=== PATIENT | female | born 1995 | race Caucasian/White ===

== ENCOUNTER 2016-06-18 23:30 | Outpatient (CLI) | payer MEDICAID ==
[2016-06-19 01:59] LABS: CHLORIDE,CL 108 mmol/L (98-110); SODIUM,NA 138 mmol/L (136-146)
== END 2016-06-19 03:35 | disposition home or self-care (01) ==
LOC: MW.OBCHECK 23:30 → MW.OB 23:31 → MW.OBCHECK 06-19 03:35
PROVIDERS: ATTEND Obstetrics & Gynecology
DX: O26.893 Other specified pregnancy related conditions, third trimester (principal); R10.9 Unspecified abdominal pain
CPT/HCPCS: 36415; 59025; 80053; 81001; 85025

== ENCOUNTER 2016-07-25 00:14 | Inpatient (IN) | payer MEDICAID ==
[2016-07-25] MEDS ORDERED: Butorphanol 1 MG/ML SDV IVPUSH PRN (00:26)
[2016-07-25] MEDS ORDERED: Sodium Chloride 0.9% 10 ML Syringe FLUSH PRN (00:26)
[2016-07-25] MEDS ORDERED: Carboprost Tromethamine 250 MCG/1 ML Amp IM PRN (00:26)
[2016-07-25] MEDS ORDERED: Misoprostol 200 MCG Tab PO PRN (00:26)
[2016-07-25] MEDS ORDERED: Sodium Chloride 0.9% 2.5 ML Syringe FLUSH PRN (00:26)
[2016-07-25] MEDS ORDERED: Methylergonovine 0.2 MG/1 ML Amp IM PRN (00:26)
[2016-07-25] MEDS ORDERED: Water For Irrigation,Sterile 1,000 ML Container IRR PRN (00:26)
[2016-07-25] MEDS ORDERED: Lidocaine 1% 50 ML MDV INJECT PRN (00:26)
[2016-07-25] MEDS ORDERED: Terbutaline 1 MG/ML SDV SUBCUT PRN (00:29)
[2016-07-25] MEDS ORDERED: Oxytocin/Lactated Ringers 30 UNIT/500 ML BAG IV ONE (00:29)
[2016-07-25] MEDS ORDERED: Lactated Ringers 1,000 ML IV SCH (00:30)
[2016-07-25] MEDS ORDERED: Oxytocin/Lactated Ringers 30 UNIT/500 ML BAG IV SCH (00:30)
[2016-07-25] MEDS ORDERED: Misoprostol 25 MCG (1/4 of 100 MCG) Tab VAG ONE (00:30)
[2016-07-25] MEDS ORDERED: Misoprostol 25 MCG (1/4 of 100 MCG) Tab VAG PRN (04:29)
[2016-07-25] MEDS ORDERED: Bisacodyl 10 MG Supp RECTAL PRN (14:43)
[2016-07-25] MEDS ORDERED: Witch Hazel Medicated Pads 40/Jar TOP PRN (14:43)
[2016-07-25] MEDS ORDERED: Acetaminophen 500 MG Tab PO PRN (14:43)
[2016-07-25] MEDS ORDERED: oxyCODONE 5 MG Tab PO PRN (14:43)
[2016-07-25] MEDS ORDERED: Docusate Sodium 100 MG Cap PO PRN (14:43)
[2016-07-25] MEDS ORDERED: Benzocaine/Menthol 20%-0.5% Spray 78 GM Cannister TOP PRN (14:43)
[2016-07-25] MEDS: Lanolin 100% Cream 7 GM Tube TOP PRN (16:27)
[2016-07-25] MEDS: Ibuprofen 800 MG Tab PO PRN (16:28)
--- NOTE | 2016-07-26 01:34 | OR ---
SURGEON: Dari Horner DATE OF PROCEDURE: 07/25/2016 BRIEF PREOPERATIVE HISTORY: This is a 21-year-old, G2, P1, who presented to Labor and Delivery at 39 weeks gestation for elective induction of labor for logistics as the patient's works in the oil field and wanted to be present for his son's delivery in his 's labor. The patient essentially had an uncomplicated except class 1 obesity. The patient was apprised of risk of induction of labor being possible need for for or maternal reasons. Knowing all of the above, the patient still desired to go forward with elective induction of labor. On arrival, the patient did have an NST that was significant for category 1 status. The patient's vital signs were stable. The patient was afebrile. The patient was having some irregular contractions. The patient was given vaginal misoprostol every 4 hours x2 doses. Third dose of misoprostol 25 mcg had to be held secondary to patient chaya every 2 minutes, though contractions were not uncomfortable. When patient was examined by me, the patient was found to be 3-4 cm dilated, 90% effaced, and -2 station. Of note, patient was GBS negative, so amniotomy was performed for clear fluid. The patient got significantly uncomfortable after rupture of membranes. The patient eventually progressed from 5-6 cm to completely dilated in about 3 hours after amniotomy was performed. The patient had no pain medications for labor. The patient immediately started maternal expulsive efforts. PREOPERATIVE DIAGNOSIS: 1. Intrauterine at 39 weeks. 2. GBS negative. 3. Elective induction of labor. PREOPERATIVE DIAGNOSIS: 1. Intrauterine at 39 weeks. 2. GBS negative. 3. Elective induction of labor. 4. Delivered status. 5. Small first-degree vaginal laceration. PROCEDURE PERFORMED: Spontaneous-assisted vaginal delivery. ANESTHESIA: None. ESTIMATED BLOOD LOSS: 100 mL. FINDINGS: Viable male infant in vertex presentation with score of 8 and 9 at 1 and 5 minutes respectively and a weight of 4270 g. Normal intact placenta with 3- vessel cord. Shoulder dystocia dislodged with Hubert and 180-degree rotation of the shoulders. Hemostatic midline first-degree vaginal laceration. SPECIMEN REMOVED: Placenta. CONDITION: Postoperatively, the patient and tolerated the procedure well. COMPLICATIONS: None known. DESCRIPTION OF PROCEDURE: This female under no anesthesia delivered a viable male in vertex presentation with score of 8 and 9 at 1 and 5 minutes respectively and weight of 4270 g. Delivery was via spontaneous-assisted vaginal delivery with in vertex presentation. Upon delivery of vertex, the neck was checked and with gentle downward traction, the anterior shoulder did not spontaneously delivered. Immediately, the maternal head of the bed was completely reclined and maternal thighs were flexed for Hubert and with 180- degree rotation of shoulders, the anterior shoulder was quickly dislodged and followed by body. The was bulb suctioned at delivery. Cord was doubly clamped and the infant was taken over to the baby warmer. Cord gases and cord blood were collected and sent for analysis. After delivery of infant, IV Pitocin was given in a bolus fashion as uterotonic to prevent excessive maternal blood loss and to help expel the placenta. With signs of placental separation, a fundal massage was completed along with traction on the umbilical cord and a normal intact placenta with 3-vessel cord was delivered. After delivery of and placenta, the vagina, perineum, and rectum were explored, the patient had a midline first-degree hemostatic vaginal laceration. The patient had a small labia minora laceration that was hemostatic. Afterwards, the lower uterine segment and vagina was cleared of all clots and debris. The patient was cleansed, pads were changed and the bed was returned to functioning status. The patient and tolerated the procedure well. Sponge, lap, needle, and instrument counts were correct. After delivery of infant and placenta, the vagina, perineum, and rectum were explored, the patient was cleansed, pads were changed and the patient's bed was returned to functioning status. The patient tolerated the procedure well. Sponge, lap, needle, and instrument counts were correct. NEWTYOL / MODL /[id number] ELOY
[2016-07-26] MEDS: Ibuprofen 800 MG Tab PO PRN ×2 (08:18→17:25)
[2016-07-26 09:20] VITALS: BP 136/81
--- NOTE | 2016-07-26 09:53 | PCM.PNPP ---
- General Info Date of Service: 07/26/16 Functional Status: Reports: pain controlled, tolerating diet, ambulating, urinating - Review of Systems General: Reports: No Symptoms HEENT: Reports: no symptoms Pulmonary: Reports: no symptoms Cardiovascular: Reports: No Symptoms Gastrointestinal: Reports: No symptoms Genitourinary: Reports: no symptoms Musculoskeletal: Reports: no symptoms Skin: Reports: no symptoms Neurological: Reports: No Symptoms Psychiatric: Reports: no symptoms - General Info Date of Service: 07/26/16 - Patient Data Vital Signs - most recent: Last Vital Signs Temp 36.7 C 07/26/16 08:00 Pulse 80 07/26/16 08:00 Resp 16 07/26/16 08:00 BP 136/81 07/26/16 08:00 Pulse Ox 97 07/26/16 08:00 Weight - most recent: 102.603 kg Lab Results - last 24 hrs: Laboratory Results - last 24 hr 07/25/16 07/26/16 Range/Units 15:29 04:12 Hgb 10.9 L (12.0-16.0) g/dL Hct 33.4 L (36.0-46.0) % Screen NEGATIVE RhIG Candidate? YES Rhogam Indicated YES, BABY RH POS H Med Orders - Current: Current Medications Acetaminophen (Tylenol Extra Strength) 500 mg PO Q4H PRN PRN Reason: Pain Benzocaine/Menthol (Dermoplast Pain Relief 20%-0.5% Cressey) 78 gm TOP ASDIRECTED PRN PRN Reason: Perineal Comfort Measure Last Admin: 07/25/16 16:28 Dose: 1 can Bisacodyl (Dulcolax) 10 mg RECTAL .ONCE PRN PRN Reason: Constipation Butorphanol Tartrate (Stadol) 1 mg IVPUSH Q1H PRN PRN Reason: Pain Carboprost Tromethamine (Hemabate Ds) 250 mcg IM ASDIRECTED PRN PRN Reason: Post Hemorrhage Docusate Sodium (Colace) 100 mg PO BID PRN PRN Reason: Constipation Emollient Ointment (Lansinoh Hpa) 0 gm TOP ASDIRECTED PRN PRN Reason: Sore Nipples Last Admin: 07/25/16 16:27 Dose: 1 tube Lactated Ringer's (Ringers, Lactated) 1,000 mls @ 150 mls/hr IV ASDIRECTED DOMO Last Infusion: 07/25/16 01:10 Dose: 150 mls/hr Oxytocin/Lactated Ringer's (Pitocin In Lr 30 Units/500 Ml) 30 unit in 500 mls @ 2 mls/hr IV TITRATE DOMO; 2 MUNITS/MIN PRN Reason: Protocol Ibuprofen (Motrin) 800 mg PO Q6H PRN PRN Reason: Pain Last Admin: 07/26/16 08:18 Dose: 800 mg Lidocaine HCl (Xylocaine 1%) 50 ml INJECT .ONCE PRN PRN Reason: Laceration repair Methylergonovine Maleate (Methergine) 0.2 mg IM ASDIRECTED PRN PRN Reason: Post Hemorrhage Misoprostol (Cytotec) 200 mcg PO .ONCE PRN PRN Reason: Post Hemorrhage Oxycodone HCl (Oxycodone) 5 mg PO Q2H PRN PRN Reason: Pain Sodium Chloride (Saline Flush) 10 ml FLUSH ASDIRECTED PRN PRN Reason: Keep Vein Open Sodium Chloride (Saline Flush) 2.5 ml FLUSH ASDIRECTED PRN PRN Reason: Keep Vein Open Sterile Water (Sterile Water For Irrigation) 1,000 ml IRR ASDIRECTED PRN PRN Reason: delivery Last Admin: 07/25/16 13:48 Dose: 1,000 ml Terbutaline Sulfate (Brethine) 0.25 mg SUBCUT ASDIRECTED PRN PRN Reason: Tacysystole Witch Cathleen (Tucks) 1 pad TOP ASDIRECTED PRN PRN Reason: comfort care Last Admin: 07/25/16 16:28 Dose: 1 tub Discontinued Medications Oxytocin/Lactated Ringer's (Pitocin In Lr 30 Units/500 Ml) 30 unit in 500 mls @ 500 mls/hr IV ONETIME ONE Stop: 07/25/16 01:28 Last Admin: 07/25/16 14:20 Dose: 500 mls/hr Misoprostol (Cytotec) 25 mcg VAG ONETIME ONE Stop: 07/25/16 00:31 Last Admin: 07/25/16 01:51 Dose: 25 mcg Misoprostol (Cytotec) 25 mcg VAG Q4H PRN PRN Reason: Cervical Ripening Stop: 07/26/16 08:30 Last Admin: 05/25/17 06:07 Dose: 25 mcg - Interaction Disposition, : [place] in Room with Family Interaction: Holding Infant Feeding: Breastfed ; Nursed Well Support Person: - Recovery Exam Fundal Tone: Firm Fundal Level: 1 Fingerbreadths Below Umbilicus Fundal Placement: Midline Lochia Amount: Small Lochia Color: Rubra/Red Perineum Description: Intact, Minimal Bruising/Swelling Episiotomy/Laceration: Approximated Bladder Status: Voiding Urinary Elimination: Voided - Exam General: alert, oriented Neck: supple Lungs: Clear to auscultation, Normal respiratory effort Cardiovascular: Regular Rate, Regular Rhythm Abdomen: bowel sounds present, soft Extremities: no calf tenderness Skin: warm, dry, intact Neurological: no new focal deficit Psy/Mental Status: alert, normal affect, normal mood - Problem List & Annotations (1) Vaginal delivery SNOMED Code(s): 447738091 Code(s): O80 - ENCOUNTER FOR FULL-TERM UNCOMPLICATED DELIVERY Status: Acute Current Visit: Yes - Problem List Review Problem List Initiated/Reviewed/Updated: Yes - My Orders Last 24 Hours: My Active Orders 07/25/16 14:43 May Shower [RC] ASDIRECTED Vital Signs [RC] PER UNIT ROUTINE Acetaminophen [Tylenol Extra Strength] 500 mg PO Q4H PRN Benzocaine/Menthol [Dermoplast Pain Relief 20%-0.5% Cressey] 78 gm TOP ASDIRECTED PRN Bisacodyl [Dulcolax] 10 mg RECTAL .ONCE PRN Docusate Sodium [Colace] 100 mg PO BID PRN Ibuprofen [Motrin] 800 mg PO Q6H PRN Lanolin [Lansinoh HPA] See Dose Instructions TOP ASDIRECTED PRN Witch Cathleen [Tucks] 1 pad TOP ASDIRECTED PRN oxyCODONE 5 mg PO Q2H PRN Assess Lochia [WOMSER] Per Unit Routine Assess Uterine Involution [WOMSER] Per Unit Routine Breast Pump [WOMSER] Per Unit Routine Peripheral IV Discontinue [OM.PC] Routine 07/25/16 14:44 Ice Therapy [OM.PC] Per Unit Routine Perineal Care [OM.PC] Per Unit Routine Sitz Bath [OM.PC] Per Unit Routine 07/25/16 15:29 SCREEN [BBK] Routine RH IMMUNE GLOBULIN [BBK] Routine RHIG WORKUP, [BBK] Routine 07/25/16 Lunch Regular Diet [DIET] - Assessment Assessment:: PPD#1 S/p SAVD Doing well overall Desires discharge home today - Plan Plan:: Discharge home today with follow up in 6wks Pelvic rest for 6wks Bleeding precautions given Infection precautions given Thrombotic precautions given blues/depression precautions given
[2016-07-26] MEDS: Lanolin 100% Cream 7 GM Tube TOP PRN (14:14)
== END 2016-07-26 17:35 | disposition home or self-care (01) | DRG 775 ==
LOC: MW.OBCHECK 00:14 → MW.OB 00:20 → OBSVTOIN 14:18 → MW.OB 14:18 → MW.OBCHECK 14:29
PROVIDERS: ADMIT Obstetrics & Gynecology; ATTEND Obstetrics & Gynecology
PROC: 10E0XZZ Delivery of Products of Conception, External Approach (ICD-10-PCS; principal; 2016-07-25)
PROC: 0HQ9XZZ Repair Perineum Skin, External Approach (ICD-10-PCS; 2016-07-25)
PROC: 10907ZC Drainage of Amniotic Fluid, Therapeutic from Products of Conception, Via Natural or Artificial Opening (ICD-10-PCS; 2016-07-25)
PROC: 3E0P7GC Introduction of Other Therapeutic Substance into Female Reproductive, Via Natural or Artificial Opening (ICD-10-PCS; 2016-07-25)
DX: O70.0 First degree perineal laceration during delivery (principal); O66.0 Obstructed labor due to shoulder dystocia; Z3A.39 39 weeks gestation of pregnancy; Z37.0 Single live birth
CPT/HCPCS: 36415; 59025; 85014; 85018; 85027; 85460; 86850; 86900; 86901; A9270-GY; J2790; J7120

== ENCOUNTER 2021-04-30 20:44 | Emergency (ER) | payer BC, MEDICAID ==
[2021-04-30] MEDS: Iopamidol 755 MG/ML 500 ML Multipack Bottle IVPUSH STA (22:52)
[2021-04-30 23:59] VITALS: BP 126/84; PULSE 84
== END 2021-04-30 23:59 | disposition home or self-care (01) ==
LOC: MW.ED 20:44
DX: K80.20 Calculus of gallbladder without cholecystitis without obstruction (principal); Z88.0 Allergy status to penicillin; Z88.1 Allergy status to other antibiotic agents
CPT/HCPCS: 74177; 81025; 99284; Q9967; 99283

== ENCOUNTER 2021-05-28 06:30 | Day surgery (SDC) | payer BC ==
[~2021-05-28 06:30] MED LIST: Lactated Ringers 1,000 ML IV SCH; cefOXitin 2 GM in Premix Bag 1 BAG IV ONE
[2021-05-28] MEDS ORDERED: Metoclopramide 10 MG/2 ML SDV IVPUSH PRN (07:00)
[2021-05-28] MEDS ORDERED: fentaNYL 100 MCG/2 ML SDV IVPUSH PRN (07:00)
[2021-05-28] MEDS ORDERED: HYDROmorphone 1 MG/ML Syringe IVPUSH PRN (07:00)
[2021-05-28] MEDS ORDERED: Naloxone 0.4 MG/ML SDV IVPUSH PRN (07:00)
[2021-05-28] MEDS ORDERED: Albuterol 0.083% 2.5 MG/3 ML Neb Soln NEB PRN (07:00)
[2021-05-28] MEDS ORDERED: Ondansetron 4 MG/2 ML SDV IVPUSH PRN (07:00)
[2021-05-28] MEDS ORDERED: Dexamethasone 4 MG/ML 5 ML MDV ONE (07:16)
[2021-05-28] MEDS ORDERED: Rocuronium Bromide 50 MG/5 ML Syringe ONE ×2 (07:16→08:34)
[2021-05-28] MEDS ORDERED: Lidocaine 2% 5 ML SDV ONE (07:16)
[2021-05-28] MEDS ORDERED: Propofol 200 MG/20 ML SDV ONE (07:16)
[2021-05-28] MEDS ORDERED: Sugammadex Sodium 200 MG/2 ML VIAL ONE (07:16)
[2021-05-28] MEDS ORDERED: Midazolam 1 MG/ML 2 ML SDV ONE (07:17)
[2021-05-28] MEDS ORDERED: ceFAZolin 1 GM Vial ONE (07:24)
[2021-05-28] MEDS ORDERED: Bupivacaine 0.5% 30 ML SDV ONE (07:24)
[2021-05-28] MEDS ORDERED: cefOXitin 100 ML ONE (07:52)
[2021-05-28] MEDS ORDERED: HYDROmorphone 2 MG/ML Syringe ONE (08:18)
[2021-05-28] MEDS ORDERED: fentaNYL 100 MCG/2 ML SDV ONE (08:35)
[2021-05-28] MEDS ORDERED: Ketorolac 30 MG/ML SDV ONE (08:54)
[2021-05-28] MEDS ORDERED: Morphine 4 MG/ML VIAL IVPUSH PRN (09:16)
[2021-05-28] MEDS ORDERED: Acetaminophen/HYDROcodone 325-5 MG Tab PO PRN (09:16)
[2021-05-28] MEDS ORDERED: Lactated Ringers 1,000 ML IV SCH (09:30)
[2021-05-28 11:05] VITALS: BP 135/79; PULSE 109
== END 2021-05-28 12:00 | disposition home or self-care (01) ==
LOC: MW.SDS 06:30
PROVIDERS: ATTEND Surgery
DX: K80.10 Calculus of gallbladder with chronic cholecystitis without obstruction (principal); Z88.0 Allergy status to penicillin; Z88.1 Allergy status to other antibiotic agents; Z98.890 Other specified postprocedural states; F41.9 Anxiety disorder, unspecified; F43.10 Post-traumatic stress disorder, unspecified; Z87.891 Personal history of nicotine dependence; E66.9 Obesity, unspecified
CPT/HCPCS: 47562; 81025; J0131; J0690; J0694; J1100; J1170; J1885; J2250; J2704; J3010; J3490; J7030; J7120; 00790